=== PATIENT | male | born 1945 | race Caucasian/White ===

== ENCOUNTER 2020-02-18 08:44 | Outpatient (CLI) | payer OTHER ==
[2020-02-18 10:12] LABS: BASOPHILS # (AUTO) 0.03 x10^3/uL (0-0.1); BASOPHILS % (AUTO) 0 % (0-1); EOSINOPHILS # (AUTO) 0.19 x10^3/uL (0-0.4); EOSINOPHILS % (AUTO) 2 % (1-7); LYMPHOCYTES # (AUTO) 1.79 x10^3/uL (1-3.4); LYMPHOCYTES % (AUTO) 21 % (22-44); MD NO; MEAN CORPUSCULAR HEMOGLOBIN 30.6 pg (27.5-34.5); MEAN PLATELET VOLUME 8.5 fL (7.4-10.4); MONOCYTES # (AUTO) 0.91 x10^3/uL (0.2-0.8); MONOCYTES % (AUTO) 11 % (2-9); NEUTROPHILS # (AUTO) 5.76 x10^3/uL (1.8-6.8); NEUTROPHILS % (AUTO) 66 % (42-75); PLATELET COUNT 312 x10^3/uL (130-400); RED BLOOD COUNT 5.12 x10^6/uL (4.38-5.82); RED CELL DISTRIBUTION WIDTH 13.1 % (9.4-14.8)
[2020-02-18 10:18] LABS: INTERNATIONAL NORMALIZED RATIO 0.95 (0.93-1.1); PROTHROMBIN TIME 10.1 Seconds (9.6-11.5)
[2020-02-18 10:21] LABS: ANION GAP 4 mmol/L (5-15); CALCIUM 9.9 mg/dL (8.5-10.1); CHLORIDE 106 mmol/L (98-107)
[2020-02-18 10:22] LABS: CREATININE 1.05 mg/dL (0.7-1.3)
[2020-02-18 10:36] LABS: MICROSCOPIC NOT IND
[2020-02-18] MEDS ORDERED: NAPR220C2 PO (12:43)
[2020-02-18] MEDS ORDERED: ASPI-496 PO (12:43)
== END 2020-02-18 23:59 | disposition home or self-care (01) ==
LOC: STAR 08:44
PROVIDERS: ATTEND Neurological Surgery
DX: Z01.818 Encounter for other preprocedural examination (principal); Z01.811 Encounter for preprocedural respiratory examination; Z01.812 Encounter for preprocedural laboratory examination; Z01.810 Encounter for preprocedural cardiovascular examination; R82.90 Unspecified abnormal findings in urine; R94.31 Abnormal electrocardiogram [ECG] [EKG]; M48.061 Spinal stenosis, lumbar region without neurogenic claudication; M54.5 Low back pain; M47.896 Other spondylosis, lumbar region; R79.1 Abnormal coagulation profile; J98.4 Other disorders of lung; J43.9 Emphysema, unspecified; R00.1 Bradycardia, unspecified
CPT/HCPCS: 36415; 71046; 80048; 81003; 85025; 85610; 85730; 93005

== ENCOUNTER 2020-02-22 06:46 | Observation (INO) | payer OTHER ==
[~2020-02-22] VITALS: Ht 188 cm; Wt 86.2 kg
[~2020-02-22 06:46] MED LIST: ASPI-496 PO; BACITRACIN 50,000 UNIT ONE; BUPIVACAINE/PF-EPI 0.5% 1:200K ONE; NAPR220C2 PO; VANCOMYCIN 1,000 MG ONE
[2020-02-22] MEDS ORDERED: LACTATED RINGERS 1,000 ML IV SCH (07:26)
[2020-02-22 07:30] VITALS: BP 134/70
[2020-02-22] MEDS ORDERED: ACETAMINOPHEN 500 MG TABLET PO ONE (07:30)
[2020-02-22] MEDS ORDERED: OXYcodone IR 5MG TABLET PO ONE (07:30)
[2020-02-22] MEDS ORDERED: CHLORHEXIDINE 15 ML UDC MM ONE (07:30)
[2020-02-22] MEDS ORDERED: MIDAZOLAM 1 MG/ML, 2ML ONE (07:37)
[2020-02-22] MEDS ORDERED: FENTANYL PF 250 MCG/5ML ONE (07:37)
[2020-02-22] MEDS ORDERED: LIDOCAINE-MPF 2% ,5ML ONE (07:38)
[2020-02-22] MEDS ORDERED: ROCURONIUM 10MG/ML,5ML ONE (07:38)
[2020-02-22] MEDS ORDERED: PROPOFOL 10 MG/ML, 20ML ONE (07:40)
[2020-02-22] MEDS ORDERED: DEXAMETHASONE 4 MG/ML, 1ML ONE (07:42)
[2020-02-22] MEDS ORDERED: CEFAZOLIN 1,000 MG ONE ×2 (07:42)
[2020-02-22] MEDS ORDERED: ONDANSETRON 2MG/ML, 2ML ONE (07:42)
[2020-02-22] MEDS ORDERED: LIDOCAINE 4%, 4 ML SYR/CANN TP ONE (07:42)
[2020-02-22] MEDS ORDERED: DIPHENHYDRAMINE 50 MG/ML, 1ML IVPush PRN ×2 (10:00→11:00)
[2020-02-22] MEDS ORDERED: OXYcodone 5 MG/5 ML ORAL.SOL UDC PO PRN (10:00)
[2020-02-22] MEDS ORDERED: MEPERIDINE/PF 25MG/0.5ML IVPush PRN (10:00)
[2020-02-22] MEDS ORDERED: DIAZEPAM 5 MG/ML, 2ML IVPush PRN (10:00)
[2020-02-22] MEDS ORDERED: HYDROmorphone 1 MG/ML, 1ML INJ IVPush PRN ×2 (10:00→11:00)
[2020-02-22] MEDS ORDERED: hydrALAzine 20 MG/ML, 1ML IV PRN (10:00)
[2020-02-22] MEDS ORDERED: ONDANSETRON 2MG/ML, 2ML IVPush PRN ×2 (10:00→11:00)
[2020-02-22] MEDS ORDERED: GLYCOPYRROLATE 0.2MG/1ML, 5ML ONE (10:14)
[2020-02-22] MEDS ORDERED: NEOSTIGMINE 1 MG/ML, 10ML ONE (10:14)
[2020-02-22] MEDS ORDERED: ENOXAPARIN 40 MG/0.4 ML SQ SCH (11:00)
[2020-02-22] MEDS ORDERED: PROMETHAZINE 25 MG/ML, 1ML IM PRN (11:00)
[2020-02-22] MEDS ORDERED: MAGNESIUM HYDROXIDE 8%, 30ML UDC PO PRN (11:00)
[2020-02-22] MEDS ORDERED: PHARMACY MAY ADJ FOR RENAL FX MC PRN (11:00)
[2020-02-22] MEDS ORDERED: SENNA/DOCUSATE TABLET PO PRN (11:00)
[2020-02-22] MEDS ORDERED: BISACODYL 10 MG SUPP PR PRN (11:00)
[2020-02-22] MEDS: SODIUM CHLORIDE FLUSH 10ML SYR IVF SCH ×2 (11:00→21:09)
[2020-02-22] MEDS ORDERED: METHOCARBAMOL 1,000 MG in DEXTROSE 5% 100 ML IV ONE (11:00)
[2020-02-22] MEDS ORDERED: FENTANYL PF 100 MCG/2ML ONE (11:05)
[2020-02-22] MEDS: FENTANYL PF 100 MCG/2ML IV PRN ×2 (11:05→11:18)
[2020-02-22 12:30] VITALS: BP 120/63
[2020-02-22] MEDS: D5%-0.9% NACL+KCL 20MEQ 1,000 ML IV SCH (14:09)
[2020-02-22] MEDS: CEFAZOLIN PMX 1GM/50ML 50 ML IVPB SCH (16:55)
[2020-02-22] MEDS: HYDROcodone/APAP 5/325 TABLET PO PRN ×2 (16:55→21:13)
[2020-02-22] MEDS ORDERED: CEFAZOLIN PMX 1GM/50ML 50 ML IVPB SCH (19:00)
[2020-02-22 20:58] VITALS: BP 125/60
[2020-02-22] MEDS: METHOCARBAMOL 750 MG TABLET PO PRN (21:09)
[2020-02-23] MEDS: CEFAZOLIN PMX 1GM/50ML 50 ML IVPB SCH (01:13)
[2020-02-23] MEDS: HYDROcodone/APAP 10/325 MG TABLET PO PRN ×3 (01:16→09:47)
[2020-02-23 01:17] VITALS: BP 114/52
[2020-02-23] MEDS: D5%-0.9% NACL+KCL 20MEQ 1,000 ML IV SCH (02:00)
[2020-02-23] MEDS ORDERED: ENOXAPARIN 40 MG/0.4 ML SQ SCH (06:00)
[2020-02-23 07:10] VITALS: BP 115/58
[2020-02-23] MEDS: SODIUM CHLORIDE FLUSH 10ML SYR IVF SCH (09:00)
[2020-02-23] MEDS: METHOCARBAMOL 750 MG TABLET PO PRN (09:46)
[2020-02-23] MEDS ORDERED: HYDR-3652 PO (11:15)
[2020-02-23] MEDS ORDERED: METH750T87 PO (11:15)
== END 2020-02-23 11:44 | disposition home or self-care (01) ==
LOC: OUT 06:46 → ORIP 10:40 → 4NE 12:09 → DCLOUNGE 02-23 11:31
PROVIDERS: ADMIT Neurological Surgery; ATTEND Neurological Surgery
DX: Z03.818 Encounter for observation for suspected exposure to other biological agents ruled out (principal); M48.062 Spinal stenosis, lumbar region with neurogenic claudication; M51.16 Intervertebral disc disorders with radiculopathy, lumbar region; E11.9 Type 2 diabetes mellitus without complications; Z87.891 Personal history of nicotine dependence; Z79.899 Other long term (current) drug therapy
CPT/HCPCS: 36415; 63056; 63057; 72100; 87635; 96361; 96365; 96366; 96372; 97161; 97165; G0378; J0690; J1100; J1650; J2250; J2405; J2704; J2710; J2800; J3010; J3370; J3480; J3490; J7120